=== PATIENT | male | born 1965 | race Two or more races ===

== ENCOUNTER 2021-06-26 10:17 | Inpatient (IN) | payer OTHER ==
[~2021-06-26] VITALS: Ht 175.3 cm; Wt 95.3 kg
[2021-06-27] MEDS ORDERED: FENOFIBRATE145 MG (11:25)
[2021-06-27] MEDS ORDERED: GABAPENTIN100 M2 (11:25)
[2021-06-27] MEDS ORDERED: NAPROXEN500 M1 (11:26)
[2021-07-05] MEDS ORDERED: LEVOFLOXACIN750 MG PO (11:42)
[2021-07-05] MEDS ORDERED: INTESTINEX680 M1 PO (11:43)
[2021-07-05] MEDS ORDERED: ALBUTEROL1.25 MG/3 IH (11:50)
== END 2021-07-05 12:48 | disposition home or self-care (01) | DRG 195 ==
LOC: ER 10:17 → MEDI 06-27 02:27
PROVIDERS: ADMIT Internal Medicine; ATTEND Internal Medicine
PROC: CB2YYZZ Tomographic (Tomo) Nuclear Medicine Imaging of Respiratory System using Other Radionuclide (ICD-10-PCS; principal; 2021-06-28)
DX: J16.8 Pneumonia due to other specified infectious organisms (principal); R09.02 Hypoxemia; Z20.822 Contact with and (suspected) exposure to COVID-19; R10.32 Left lower quadrant pain; I10 Essential (primary) hypertension

== ENCOUNTER 2021-09-16 10:11 | Outpatient (CLI) | payer OTHER ==
[~2021-09-16 10:11] MED LIST: ALBUTEROL1.25 MG/3 IH; FENOFIBRATE145 MG; GABAPENTIN100 M2; INTESTINEX680 M1 PO; LEVOFLOXACIN750 MG PO; NAPROXEN500 M1
== END 2021-09-16 10:52 | disposition home or self-care (01) ==
LOC: TOM 10:11
PROVIDERS: ATTEND Internal Medicine
DX: M54.40 Lumbago with sciatica, unspecified side (principal); Z87.01 Personal history of pneumonia (recurrent)

== ENCOUNTER 2021-09-17 09:00 | Outpatient (CLI) | payer OTHER | END 2021-09-17 09:30 | disposition home or self-care (01) | LOC: PPH VACUNA 09:00 | PROVIDERS: ATTEND Emergency Medicine Pediatric Emergency Medicine | DX: Z23 Encounter for immunization (principal) ==

== ENCOUNTER 2023-10-29 10:18 | Day surgery (SDC) | payer OTHER ==
[2023-10-23 09:33] LABS: URINE APPEARANCE Clear; URINE BILIRRUBIN Negative (NEGATIVE); URINE BLOOD Negative; URINE COLOR Yellow; URINE GLUCOSE Negative (NEGATIVE); URINE LEUKOCYTE Negative; URINE NITRATE Negative; URINE PROTEIN Negative (NEGATIVE); URINE UROBILINOGEN 0.2 E.U./dl
[2023-10-23 09:42] LABS: URINE BACTERIA 8.8 uL (0.0-1933); URINE EPITHELIAL CELLS 4.4 uL (0.0-38.8); URINE WBC 9.5 uL (0.0-23.2)
[2023-10-23 09:44] LABS: HEMATOCRIT 44.8 % (39.0-48.0); HEMOGLOBIN 15.5 g/dL (13-16.00); MEAN CELL VOLUME 92.4 fL (80.0-100.00); MEAN CORPUSCULAR HEMOGLOBIN 31.9 pg (27.00-32.0); MEAN CORPUSCULAR HGB CONC 34.5 g/dl (32.0-36.0); PLATELET COUNT 151 K/uL (150-450); RED BLOOD COUNT 4.84 M/uL (4.00-6.00); RED CELL DISTRIBUTION WIDTH 13.1 % (11.5-14.5)
[2023-10-23 09:58] LABS: INR 1.1; PARTIAL THROMBOPLASTIN TIME 28.9 SECONDS (22.0-34.0); PROTHROMBIN TIME 11.5 SECONDS (9.0-11.5)
[2023-10-23 10:10] LABS: BILIRUBIN TOTAL 0.93 mg/dL (0.3-1.2); CALCIUM 9.5 mg/dL (8.5-10.1); CREATININE SERUM 0.74 mg/dL (0.70-1.30); GFR 108.63; GLOBULINA 3.2 G/DL (2.4-3.5); POTASSIUM 4.91 mEq/L (3.5-5.1); TOTAL PROTEIN 7.2 gm/dL (6.4-8.2)
[2023-10-23 11:13] LABS: URINE RBC 1.4 uL (0.0-20.8)
[~2023-10-29] VITALS: Ht 175.3 cm; Wt 108.9 kg
[~2023-10-29 10:18] MED LIST changes: +DICLOFENAC POTA50 MG PO
== END 2023-10-29 16:50 | disposition home or self-care (01) ==
LOC: CIR.AMB 10:18
PROVIDERS: ATTEND Orthopaedic Surgery
DX: M75.41 Impingement syndrome of right shoulder (principal); M75.51 Bursitis of right shoulder; M19.011 Primary osteoarthritis, right shoulder; M75.101 Unspecified rotator cuff tear or rupture of right shoulder, not specified as traumatic